=== PATIENT | male | born 1955 | race Hispanic/Latino ===

== ENCOUNTER 2016-11-27 13:50 | Outpatient (CLI) | payer MEDICARE | END 2016-11-27 13:51 | disposition home or self-care (01) | LOC: PET 13:50 | PROVIDERS: ATTEND Internal Medicine | DX: C43.9 Malignant melanoma of skin, unspecified (principal) | CPT/HCPCS: 78816; 82962; A9552 ==

== ENCOUNTER 2016-11-28 10:36 | Outpatient (CLI) | payer MEDICARE ==
[2016-11-28 11:27] LABS: Blood Urea Nitrogen 17 mg/dL (9-20)
== END 2016-11-28 10:37 | disposition home or self-care (01) ==
LOC: MRI 10:36
PROVIDERS: ATTEND Internal Medicine
DX: C43.59 Malignant melanoma of other part of trunk (principal)
CPT/HCPCS: 36415; 82565; 84520

== ENCOUNTER 2016-12-10 11:07 | Outpatient (CLI) | payer MEDICARE ==
[2016-12-10 13:14] LABS: Blood Urea Nitrogen 25 mg/dL (9-20)
--- NOTE | 2016-12-10 15:05 | Cat Scan Report ---
CT HEAD WITH AND WITHOUT CONTRAST: HISTORY: Melanoma. Serial contiguous axial images were obtained through the cranium, both before and after the administration of intravenous contrast material. The ventricles are normal in size and appearance. There is no mass effect or midline shift. No areas of abnormally increased or decreased attenuation are seen. No mass lesion is seen. A neurostimulator device terminates near the tentorium in the posterior fossa. This is unchanged since 09/25/16. The mastoid air cells and visualized portions of the sinuses are normal. IMPRESSION: Cranial CT scan within normal limits. No evidence for metastatic disease.
== END 2016-12-10 11:08 | disposition home or self-care (01) ==
LOC: CT 11:07
PROVIDERS: ATTEND Surgery Surgical Oncology
DX: C43.59 Malignant melanoma of other part of trunk (principal)
CPT/HCPCS: 36415; 70470; 82565; 84520; Q9967

== ENCOUNTER 2017-02-09 05:30 | Emergency (ER) | payer MEDICARE ==
--- NOTE | 2017-02-09 07:30 | Emergency Department Report ---
ED Fall HPI - General Chief Complaint: Fall Stated Complaint: HEAD LAC Time Seen by Provider: 02/09/17 07:15 Source: EMS Mode of arrival: Stretcher - History of Present Illness MD Complaint: fall -: Sudden Fall From: standing When Fall Occurred: 1 hour [employer] Fall Witnessed: yes, by living facility s Place Fall Occurred: detention/SNF Loss of Consciousness: none Prolonged Down Time?: no Symptoms Prior to Fall: none Location: head Severity: mild Severity scale (0 -10): 2 Quality: sharp Context: tripped/slipped Associated Symptoms: denies - Related Data Home Medications Medication Instructions Recorded Confirmed Last Taken Lacosamide [Vimpat] 100 mg PO Q12HR 09/01/15 11/29/15 09/26/15 08:00 Mirtazapine Solutab [Remeron] 15 mg PO QHS 09/01/15 11/29/15 09/25/15 Ziprasidone [Geodon] 20 mg PO BID 09/01/15 11/29/15 09/25/15 levETIRAcetam [Keppra TAB] 1,500 mg PO BID 09/01/15 11/29/15 09/26/15 08:00 Acetaminophen [Tylenol] 325 mg PO PRN PRN 09/13/15 11/29/15 09/20/15 Cholecalciferol (Vitamin D3) 50,000 unit PO QMONTH 09/13/15 11/29/15 09/20/15 [Vitamin D] Ferrous Sulfate [Feosol 325 MG tab] 325 mg PO DAILY 09/13/15 11/29/15 09/25/15 Ibuprofen [Motrin 600 MG tab] 600 mg PO PRN PRN 09/13/15 11/29/15 09/21/15 LORazepam [Ativan] 0.5 mg PO PRN PRN 09/13/15 11/29/15 09/20/15 Pedi Multivit #61/Vit D3/Vit K 1 tab PO DAILY 09/13/15 11/29/15 09/21/15 [Complete Formulation Multivit] oxyCODONE /ACETAMINOPHEN [Percocet 1 tab PO PRN PRN 09/13/15 11/29/15 09/23/15 5/325 mg] Previous Rx's Medication Instructions Recorded Last Taken Type Bacitracin [Bacitracin Ophth] 3.5 gm OP BID #1 oint...g. 09/15/16 Unknown Rx Mupirocin 1 gm TP ACHS #1 oin.pf.miryam 02/09/17 Unknown Rx Allergies Allergy/AdvReac Type Severity Reaction Status Date / Time No Known Allergies Allergy Verified 09/13/15 11:36 ED Review of Systems ROS: Stated complaint: HEAD LAC Other details as noted in HPI Comment: All other systems reviewed and negative Constitutional: no symptoms reported Skin: other (laceration) Neurological: headache ED Past Medical Hx - Past Medical History Previous Medical History?: Yes Hx Heart Attack/AMI: No Hx Congestive Heart Failure: No Hx Diabetes: No Hx Renal Disease: No Hx Seizures: Yes (seizure disorder since 13 yrs old, has deep brain stimulator, on Keppra) Hx Psychiatric Treatment: Yes (schizotypal d/o; major depression) Hx Asthma: No Hx COPD: No Hx Dementia: Yes Additional medical history: high chol, dementia. myopia - Surgical History Additional Surgical History: Stimulator to his brain to control seizures. - Social History Smoking Status: Never Smoker - Medications Home Medications: Home Medications Medication Instructions Recorded Confirmed Last Taken Type Lacosamide [Vimpat] 100 mg PO Q12HR 09/01/15 11/29/15 09/26/15 08:00 History Mirtazapine Solutab [Remeron] 15 mg PO QHS 09/01/15 11/29/15 09/25/15 History Ziprasidone [Geodon] 20 mg PO BID 09/01/15 11/29/15 09/25/15 History levETIRAcetam [Keppra TAB] 1,500 mg PO BID 09/01/15 11/29/15 09/26/15 08:00 History Acetaminophen [Tylenol] 325 mg PO PRN PRN 09/13/15 11/29/15 09/20/15 History Cholecalciferol (Vitamin D3) 50,000 unit PO QMONTH 09/13/15 11/29/15 09/20/15 History [Vitamin D] Ferrous Sulfate [Feosol 325 MG tab] 325 mg PO DAILY 09/13/15 11/29/15 09/25/15 History Ibuprofen [Motrin 600 MG tab] 600 mg PO PRN PRN 09/13/15 11/29/15 09/21/15 History LORazepam [Ativan] 0.5 mg PO PRN PRN 09/13/15 11/29/15 09/20/15 History Pedi Multivit #61/Vit D3/Vit K 1 tab PO DAILY 09/13/15 11/29/15 09/21/15 History [Complete Formulation Multivit] oxyCODONE /ACETAMINOPHEN [Percocet 1 tab PO PRN PRN 09/13/15 11/29/15 09/23/15 History 5/325 mg] Bacitracin [Bacitracin Ophth] 3.5 gm OP BID #1 oint...g. 09/15/16 Unknown Rx Mupirocin 1 gm TP ACHS #1 oin.pf.miryam 02/09/17 Unknown Rx ED Physical Exam - General Limitations: No Limitations General appearance: alert, in no apparent distress - Head Head exam: Present: other (right forehead laceration) - Eye Eye exam: Present: normal appearance, PERRL, EOMI - ENT ENT exam: Present: normal exam - Neck Neck exam: Present: normal inspection, tenderness - Respiratory Respiratory exam: Present: normal lung sounds bilaterally - Cardiovascular Cardiovascular Exam: Present: regular rate - GI/Abdominal GI/Abdominal exam: Present: soft - Neurological Exam Neurological exam: Present: alert, oriented X3 - Psychiatric Psychiatric exam: Present: normal affect - Skin Skin exam: Present: other (laceration right forehead) ED Course Vital Signs 02/09/17 05:44 Temperature 98.6 F Pulse Rate 76 Blood Pressure 139/81 - Laceration /Wound Repair Head Wound Location: head Wound's Depth, Shape: into muscle Wound Explored: clean Betadine Prep?: Yes Anesthesia: 1% Lidocaine Wound Debrided: moderate Wound Repaired With: sutures Suture Size/Type: 4:0 Layer Closure?: Yes (1) Number Deep Layer Sutures: 1 Critical care attestation.: If time is entered above; I have spent that time in minutes in the direct care of this critically ill patient, excluding procedure time. ED Disposition Clinical Impression: Laceration of head Disposition: DC-01 TO HOME OR SELFCARE Is pt being admited?: No Does the pt Need Aspirin: No Condition: Stable Instructions: Suture Care (ED) Prescriptions: Mupirocin 1 gm TP ACHS #1 oin.pf.miryam Referrals: PRIMARY CARE, [Primary Care Provider] - 3-5 Days
--- NOTE | 2017-02-09 08:05 | Cat Scan Report ---
CT HEAD WITHOUT CONTRAST INDICATION: Head injury. COMPARISON: 12/10/2016. FINDINGS: Noncontrast head CT again demonstrates normal ventricles and symmetric, age-appropriate sulci, prominent anteriorly and toward the vertex. Slight periventricular hypodensities. No acute infarct, hemorrhage, mass effect or midline shift. Normal posterior fossa with preserved basilar cisterns. Cerebellar neurostimulator electrodes bilaterally creating extensive streak artifact and limiting exam. Normal eye globes. Clear paranasal sinuses and mastoid air cells. Bilateral external auditory canal debris may be directly visualized. Extensive atherosclerotic ICA and vertebrobasilar calcifications. Intact calvarium except for midline occipital postsurgical changes. High parietal scalp swelling/hematoma posteriorly is new, axial image 50. Few radiopaque dental fillings and missing teeth. Cervical spondylosis. CONCLUSION: High parietal scalp swelling/hematoma posteriorly and various other incidental findings without acute intracranial CT abnormality, as described. Please correlate. Thank you for the opportunity to participate in this patient's care.
[2017-02-09] MEDS ORDERED: XYLOCAINE 1% 20 mL INFILTRATI ONE (08:09)
[2017-02-09 08:58] VITALS: BP 132/76
== END 2017-02-09 10:30 | disposition home or self-care (01) ==
LOC: ED 05:30
DX: S01.81XA Laceration without foreign body of other part of head, initial encounter (principal); G40.909 Epilepsy, unspecified, not intractable, without status epilepticus; E78.00 Pure hypercholesterolemia, unspecified; F03.90 Unspecified dementia, unspecified severity, without behavioral disturbance, psychotic disturbance, mood disturbance, and anxiety
CPT/HCPCS: 70450

== ENCOUNTER 2017-02-20 02:04 | Emergency (ER) | payer MEDICARE ==
[2017-02-20] MEDS ORDERED: NACL 0.9% IR ONE (02:30)
[2017-02-20] MEDS ORDERED: MARCAINE 0.5% INFILTRATI ONE (02:30)
--- NOTE | 2017-02-20 02:32 | Emergency Department Report ---
<ARIELA PLUNKETT A - Last Filed: 02/20/17 19:08> ED Fall HPI - General Chief Complaint: Fall Stated Complaint: FALL - HEAD LAC Time Seen by Provider: 02/20/17 02:28 Source: patient, EMS Mode of arrival: Ambulatory - History of Present Illness Initial Comments: Patient brought to emergency room from personal alf. Patient has extensive history of schizophrenic disorder, major depression, dementia, seizure disorder. It was reported that baseline he is mentally slow. It was reported that patient was found on the floor and EMS report that staff told them that patient slipped and fell. Patient is at [facility]. Patient with multiple laceration to face and missing tooth with lip laceration. He denies any headache or neck pain. Patient said he does not have any pain. He said he slipped and fell. Denies that he lost consciousness. Patient does answer questions appropriately. EMS did not give patient any medication. MD Complaint: fall -: During the night Fall From: standing (reported by fdc) When Fall Occurred: just prior to arrival Fall Witnessed: yes, by bystander, yes, by living facility s Place Fall Occurred: other (assisted-living facility) Loss of Consciousness: none Prolonged Down Time?: no Symptoms Prior to Fall: none Location: head, face, mouth Severity scale (0 -10): 0 Context: tripped/slipped Associated Symptoms: denies: headache, neck pain, numbness, weakness, chest paint, shortness of breath, abdominal pain, hematuria, lightheaded, vertigo, confusion - Related Data Home Medications Medication Instructions Recorded Confirmed Last Taken Lacosamide [Vimpat] 100 mg PO Q12HR 09/01/15 11/29/15 09/26/15 08:00 Mirtazapine Solutab [Remeron] 15 mg PO QHS 09/01/15 11/29/15 09/25/15 Ziprasidone [Geodon] 20 mg PO BID 09/01/15 11/29/15 09/25/15 levETIRAcetam [Keppra TAB] 1,500 mg PO BID 09/01/15 11/29/15 09/26/15 08:00 Acetaminophen [Tylenol] 325 mg PO PRN PRN 09/13/15 11/29/15 09/20/15 Cholecalciferol (Vitamin D3) 50,000 unit PO QMONTH 09/13/15 11/29/15 09/20/15 [Vitamin D] Ferrous Sulfate [Feosol 325 MG tab] 325 mg PO DAILY 09/13/15 11/29/15 09/25/15 Ibuprofen [Motrin 600 MG tab] 600 mg PO PRN PRN 09/13/15 11/29/15 09/21/15 LORazepam [Ativan] 0.5 mg PO PRN PRN 09/13/15 11/29/15 09/20/15 Pedi Multivit #61/Vit D3/Vit K 1 tab PO DAILY 09/13/15 11/29/15 09/21/15 [Complete Formulation Multivit] oxyCODONE /ACETAMINOPHEN [Percocet 1 tab PO PRN PRN 09/13/15 11/29/15 09/23/15 5/325 mg] Previous Rx's Medication Instructions Recorded Last Taken Type Bacitracin [Bacitracin Ophth] 3.5 gm OP BID #1 oint...g. 09/15/16 Unknown Rx Mupirocin 1 gm TP ACHS #1 oin.pf.miryam 02/09/17 Unknown Rx Acetaminophen [Non-Aspirin Pain 500 mg PO Q8H PRN #12 tablet 02/20/17 Unknown Rx Relief] Cephalexin [Keflex] 500 mg PO Q8HR #21 cap 02/20/17 Unknown Rx Allergies Allergy/AdvReac Type Severity Reaction Status Date / Time No Known Allergies Allergy Verified 09/13/15 11:36 ED Review of Systems ROS: Stated complaint: FALL - HEAD LAC Other details as noted in HPI Comment: All other systems reviewed and negative Constitutional: denies: chills, fever Eyes: denies: vision change ENT: denies: epistaxis Respiratory: no symptoms reported Cardiovascular: denies: chest pain, palpitations, edema, syncope Gastrointestinal: denies: abdominal pain, nausea, vomiting, diarrhea Musculoskeletal: denies: back pain, joint swelling, arthralgia, myalgia Skin: other (lacerations s/p fall). denies: rash Neurological: denies: headache, weakness, numbness, paresthesias, confusion, vertigo Psychiatric: denies: anxiety, depression, auditory hallucinations, visual hallucinations, homicidal thoughts, suicidal thoughts Hematological/Lymphatic: denies: easy bleeding, easy bruising, swollen glands ED Past Medical Hx - Past Medical History Previous Medical History?: Yes Hx Heart Attack/AMI: No Hx Congestive Heart Failure: No Hx Diabetes: No Hx Renal Disease: No Hx Seizures: Yes (seizure disorder since 13 yrs old, has deep brain stimulator, on Keppra) Hx Psychiatric Treatment: Yes (schizotypal d/o; major depression) Hx Asthma: No Hx COPD: No Hx Dementia: Yes Additional medical history: high chol, dementia. myopia - Surgical History Past Surgical History?: No Additional Surgical History: Stimulator to his brain to control seizures. - Family History Family history: no significant - Social History Smoking Status: Never Smoker Substance Use Type: None Other Social History: Lives in assisted living facility - Medications Home Medications: Home Medications Medication Instructions Recorded Confirmed Last Taken Type Lacosamide [Vimpat] 100 mg PO Q12HR 09/01/15 11/29/15 09/26/15 08:00 History Mirtazapine Solutab [Remeron] 15 mg PO QHS 09/01/15 11/29/15 09/25/15 History Ziprasidone [Geodon] 20 mg PO BID 09/01/15 11/29/15 09/25/15 History levETIRAcetam [Keppra TAB] 1,500 mg PO BID 09/01/15 11/29/15 09/26/15 08:00 History Acetaminophen [Tylenol] 325 mg PO PRN PRN 09/13/15 11/29/15 09/20/15 History Cholecalciferol (Vitamin D3) 50,000 unit PO QMONTH 09/13/15 11/29/15 09/20/15 History [Vitamin D] Ferrous Sulfate [Feosol 325 MG tab] 325 mg PO DAILY 09/13/15 11/29/15 09/25/15 History Ibuprofen [Motrin 600 MG tab] 600 mg PO PRN PRN 09/13/15 11/29/15 09/21/15 History LORazepam [Ativan] 0.5 mg PO PRN PRN 09/13/15 11/29/15 09/20/15 History Pedi Multivit #61/Vit D3/Vit K 1 tab PO DAILY 09/13/15 11/29/15 09/21/15 History [Complete Formulation Multivit] oxyCODONE /ACETAMINOPHEN [Percocet 1 tab PO PRN PRN 09/13/15 11/29/15 09/23/15 History 5/325 mg] Bacitracin [Bacitracin Ophth] 3.5 gm OP BID #1 oint...g. 09/15/16 Unknown Rx Mupirocin 1 gm TP ACHS #1 oin.pf.miryam 02/09/17 Unknown Rx Acetaminophen [Non-Aspirin Pain 500 mg PO Q8H PRN #12 tablet 02/20/17 Unknown Rx Relief] Cephalexin [Keflex] 500 mg PO Q8HR #21 cap 02/20/17 Unknown Rx ED Physical Exam - General Limitations: No Limitations, Physical Limitation General appearance: alert, in no apparent distress - Head Head exam: Present: atraumatic, normocephalic, normal inspection - Eye Eye exam: Present: normal appearance, PERRL, EOMI. Absent: nystagmus, periorbital swelling, periorbital tenderness Pupils: Present: normal accommodation - ENT ENT exam: Present: normal orophraynx, mucous membranes moist, TM's normal bilaterally, normal external ear exam. Absent: normal exam - Expanded ENT Exam Expanded Ear exam: Present: normal external inspection Mouth exam: Present: tongue normal, laceration (upper rt lip). Absent: drooling , trismus, muffled voice, tongue elevation Teeth exam: Present: dental caries, fractured tooth # (missing tooth #7 and 8), dental tenderness # (#7, 8 and 9). Absent: gingival enlargement Throat exam: Positive: normal inspection - Neck Neck exam: Present: normal inspection, full ROM. Absent: tenderness, meningismus, lymphadenopathy - Expanded Neck Exam Expanded Neck exam: Absent: tenderness, midline deformity, anterior neck swelling, tracheal deviation - Respiratory Respiratory exam: Present: normal lung sounds bilaterally. Absent: respiratory distress, chest wall tenderness, accessory muscle use, decreased breath sounds - Cardiovascular Cardiovascular Exam: Present: regular rate, normal rhythm, normal heart sounds - GI/Abdominal GI/Abdominal exam: Present: soft, normal bowel sounds. Absent: distended, tenderness, guarding, rebound, rigid - Extremities Exam Extremities exam: Present: normal inspection, full ROM, normal capillary refill , other (no clubbing cyanosis or edema to extremities. +2 pulses to extremities. no neurovascular compromise.). Absent: tenderness, pedal edema, joint swelling, calf tenderness - Back Exam Back exam: Present: normal inspection, full ROM. Absent: tenderness, CVA tenderness (R), CVA tenderness (L), muscle spasm, paraspinal tenderness, vertebral tenderness, rash noted - Neurological Exam Neurological exam: Present: alert, oriented X3, abnormal gait (patient able to ambulate but his gait is unsteady which is chronic for him), reflexes normal, other (patient is alert and oriented 3, normal speech and no facial drooping. GCS of 15. Decrease strength to lower extremities which is chronic.. Bilateral hand tool builder strong and equal.). Absent: motor sensory deficit - Expanded Neurological Exam Expanded Neurological exam: Absent: innattentive, memory loss-remote event, memory loss- recent event, ataxia, receptive aphasia, expressive aphasia, total aphasia, tremor, protecting the airway Patient oriented to: Present: person, place, time Speech: Present: fluid speech Cranial nerves: EOM's Intact: Normal, Gag Reflex: Normal, Tongue Deviation: Normal, Nystagmus: Normal, Facial Sensation: Normal Cerebellar function: Finger to Nose: Normal, Romberg: Abnormal Right, Abnormal Left (patient would unsteady gait which is chronic) Upper motor neuron: Pronator Drift: Normal, Sensory Extinction: Normal Sensory exam: Upper Extremity Light Touch: Normal, Upper Extremity Temperature: Normal, UE 2 Point Discrimination: Normal, Lower Extremity Light Touch: Normal, Lower Extremity Temperature: Normal, LE 2 Point Discrimination: Normal Motor strength exam: RUE: 5, LUE: 5, RLE: 4, LLE: 4 DTR: bicep (R): 2+, bicep (L): 2+, tricep (R): 2+, tricep (L): 2+, knee (R): 2+ , knee (L): 2+, ankle (R): 2+, ankle (L): 2+ Best Eye Response ([place]): (4) open spontaneously Best Motor Response (Gustavo): (6) obeys commands Best Verbal Response (Gustavo): (5) oriented Gustavo Total: 15 - Psychiatric Psychiatric exam: Present: normal affect, normal mood - Skin Skin exam: Present: warm, dry, other (multiple laceration to face) - Expanded Skin Exam Expanded Type of lesion: Present: laceration Distribution of rash: head (laceration to forehead with scant bleed and), face ( laceration to the nasal bone area and inner upper lip) Description of rash: Present: tenderness, swelling. Absent: erythematous, discharge, fluctuant, indurated ED Course Vital Signs 02/20/17 02/20/17 02/20/17 02:33 02:34 03:40 Temperature 99 F 98 F Pulse Rate 88 77 Respiratory 18 18 18 Rate Blood Pressure 119/58 113/62 [Left] O2 Sat by Pulse 100 94 Oximetry 02/20/17 02/20/17 03:42 05:15 Temperature Pulse Rate 86 Respiratory 18 18 Rate Blood Pressure 134/84 [Left] O2 Sat by Pulse 98 Oximetry - Reevaluation(s) Reevaluation #1: 02/20/17 04:09 Patient tetanus shot is up-to-date he received in 2016 Reevaluation #2: 02/20/17 05:08 Patient's stable, he was given Ancef 1 g in emergency room empirically due to multiple laceration. See procedure note for laceration repair. Patient able to stand up and ambulate. His gait is unsteady - Laceration /Wound Repair Right Frontal Wound Location: head (right forehead) Wound Length (cm): 2 Wound's Depth, Shape: into muscle, irregular Wound Explored: clean Irrigated w/ Saline (ccs): 300 Betadine Prep?: Yes Anesthesia: 0.5% Sensorcaine (0.5% Marcaine) Volume Anesthetic (ccs): 1 Wound Debrided: extensive Wound Repaired With: sutures Suture Size/Type: 4:0 (Vicryl) Number of Sutures: 12 Layer Closure?: Yes Deep Layer Suture Size/Type: 6:0 (Vicryl) Number Deep Layer Sutures: 3 Sterile Dressing Applied?: Yes Progress: Patient laceration repaired under sterile procedure. Tolerated procedure well. Wound edges well approximated. Absorbable sutures used Medial Nose Wound Location: face (medial nose) Wound Length (cm): 0 (0.25 cm) Wound's Depth, Shape: superficial Wound Explored: no foreign body removed Irrigated w/ Saline (ccs): 100 Betadine Prep?: Yes Anesthesia: 0.5% Sensorcaine (0.5% Marcaine) Volume Anesthetic (ccs): 0 (0.25 mL) Wound Debrided: moderate Wound Repaired With: sutures Suture Size/Type: 6:0 (Vicryl) Number of Sutures: 2 Layer Closure?: Yes Sterile Dressing Applied?: No Progress: Wound repaired under sterile procedure. Wound edges well approximated and patient tolerated procedure well Right Upper Face Wound Location: mouth (right upper inner lip) Wound Length (cm): 1 Wound's Depth, Shape: superficial, irregular, stellate Wound Explored: no foreign body removed Irrigated w/ Saline (ccs): 200 Betadine Prep?: Yes Anesthesia: 0.5% Sensorcaine (0.5% marcaine) Wound Debrided: moderate Wound Repaired With: sutures Suture Size/Type: 6:0 (vicryl) Number of Sutures: 6 Layer Closure?: No Sterile Dressing Applied?: Yes Medial Frontal Wound Location: head (mid forehead) Wound Length (cm): 0 (0.25 cm) Wound's Depth, Shape: superficial, linear Wound Explored: clean Irrigated w/ Saline (ccs): 100 Betadine Prep?: Yes Volume Anesthetic (ccs): 0 Wound Debrided: moderate Wound Repaired With: Steri-strips Number of Sutures: 2 Layer Closure?: No Sterile Dressing Applied?: No ED Medical Decision Making - Lab Data Result diagrams: 02/20/17 03:10 02/20/17 03:10 Lab Results 02/20/17 02/20/17 Range/Units 03:10 03:10 WBC 14.6 H (4.5-11.0) K/mm3 RBC 3.76 (3.65-5.03) M/mm3 Hgb 12.9 (11.8-15.2) gm/dl Hct 36.5 (35.5-45.6) % MCV 97 H (84-94) fl MCH 34 H (28-32) pg MCHC 35 H (32-34) % RDW 18.0 H (13.2-15.2) % Plt Count 186 (140-440) K/mm3 Lymph % (Auto) 6.4 L (13.4-35.0) % [place] % (Auto) 7.5 H (0.0-7.3) % Eos % (Auto) 0.7 (0.0-4.3) % Baso % (Auto) 0.2 (0.0-1.8) % Lymph # 0.9 L (1.2-5.4) K/mm3 [place] # 1.1 H (0.0-0.8) K/mm3 Eos # 0.1 (0.0-0.4) K/mm3 Baso # 0.0 (0.0-0.1) K/mm3 Seg Neutrophils % 85.2 H (40.0-70.0) % Seg Neutrophils # 12.4 H (1.8-7.7) K/mm3 Sodium 143 (137-145) mmol/L Potassium 3.9 (3.6-5.0) mmol/L Chloride 104.0 (98-107) mmol/L Carbon Dioxide 24 (22-30) mmol/L Anion Gap 19 mmol/L BUN 26 H (9-20) mg/dL Creatinine 0.9 (0.8-1.5) mg/dL Estimated GFR > 60 ml/min BUN/Creatinine Ratio 28.88 % Glucose 107 H (75-100) mg/dL Calcium 9.4 (8.4-10.2) mg/dL - Radiology Data Radiology results: report reviewed CT scan of the facial bones revealed acute avulsion of the right central maxillary incisor partial avulsion of the left central maxillary incisor. Depressed bilateral nasal bone fractures, comminuted no intraocular or retro- bulbar hematoma CT scan of the head reveals no acute intracranial abnormality. Mild age- related volume loss and chronic small vessel ischemic disease. Bilateral cerebral neuro stimulator remained in place. Persistent soft tissue swelling over high parietal Calvarium. CT scan of C-spine revealed no acute fracture or subluxation of the cervical spine. Mild to moderate degenerative changes of the cervical spine - Medical Decision Making ED course: 62-year-old male Patient came from assisted living facility after falling and with multiple laceration to the facial area. Patient is neurologically intact with no C-spine pain or headache and denies loss of consciousness. Multiple laceration repair see procedure note for details. Patient had multiple CT scan which did not show any acute findings except for multiple missing tooth and nasal bone fracture. CBC and BMP done see results below. Patient did not require any pain medication in the emergency room. Diagnosis and treatment plan discussed with patient. Patient able to get out of bed and ambulate and he is at his baseline which she is unsteady on his feet. Ambulance called to transport patient back to assisted living facility. He remained stable throughout ED course. Diagnostic/laboratory results:CT scan of the facial bones revealed acute avulsion of the right central maxillary incisor partial avulsion of the left central maxillary incisor. Depressed bilateral nasal bone fractures, comminuted no intraocular or retro-bulbar hematoma CT scan of the head reveals no acute intracranial abnormality. Mild age- related volume loss and chronic small vessel ischemic disease. Bilateral cerebral neuro stimulator remained in place. Persistent soft tissue swelling over high parietal Calvarium. CT scan of C-spine revealed no acute fracture or subluxation of the cervical spine. Mild to moderate degenerative changes of the cervical spine CBC white count of 14.6 otherwise stable, BMP with BUN at 26 which is mildly elevated and blood glucose at 107. Otherwise stable Assessment/plan 1. Accidental ground-level fall 2.Laceration multiple sites to include nose, inner upper lip and right forehead 3. Closed head injury 4. Avulsion Tooth, Multiple 5: Bilateral nasal bone fracture Patient is stable and able to ambulate in room but is gait is unsteady which is baseline for him. Patient discharged from emergency room awaiting EMS transport back to assisted living facility. Discharge home with prescription for Keflex and Tylenol plain and to follow up with his primary care physician later this morning. Patient also given referral to ENT regarding nasal bone fracture, and dentists. Patient with laceration repair with absorbable suture so there is no need to return for suture removal. Patient is able to communicate and voiced understanding of diagnosis. RN to call report to assisted living facility. Patient away then EMS transport. Critical care attestation.: If time is entered above; I have spent that time in minutes in the direct care of this critically ill patient, excluding procedure time. ED Disposition Disposition: DC-01 TO HOME OR SELFCARE Is pt being admited?: No Does the pt Need Aspirin: No Condition: Stable Instructions: Nasal Fracture (ED), Laceration (ED), Fall Prevention for Older Adults (ED), Minor Head Injury (ED), Acute dental trauma (ED), Skin Adhesive Care (ED), Absorbable Suture Care (ED) Additional Instructions: Please take antibiotic as prescribed You can take plain Tylenol for pain See discharge instruction on suture care and laceration Follow-up with primary care physician later this morning and Prescriptions: Acetaminophen [Non-Aspirin Pain Relief] 500 mg PO Q8H PRN #12 tablet PRN Reason: Pain Cephalexin [Keflex] 500 mg PO Q8HR #21 cap Referrals: MURPHY CHUNG MD [Primary Care Provider] - 02/20/17 [facility] [Outside] - 02/20/17 BARBARA WANG MD [Staff Physician] - 02/20/17 <ROBIN LANGE - Last Filed: 02/21/17 11:11> ED Medical Decision Making - Lab Data Result diagrams: 02/20/17 03:10 02/20/17 03:10 - Medical Decision Making I have seen and examined this patient myself. I agree with the PA or COMMISSARY WORKER plan as discussed. Sridhar Lange
--- NOTE | 2017-02-20 03:07 | Cat Scan Report ---
FINAL REPORT EXAM: CT HEAD/BRAIN WO CON HISTORY: fall COMPARISON: CT of the head from February 09, 2017. TECHNIQUE: Axial images obtained skull base through vertex. FINDINGS: No acute intracranial hemorrhage, midline shift or pathologic extra axial fluid collection. Age related volume loss with compensatory dilatation of the ventricular system and chronic small vessel ischemic disease. Otherwise, mckinley-white differentiation preserved. Prominent calcification of the vertebral basilar system and carotid siphons. Mild lateral stimulator leads are present along the superior margin the bilateral cerebellar hemispheres. Visualized orbits are grossly unremarkable. Visualized para-nasal sinuses and mastoid air cells are clear. Persistent soft tissue swelling over the high parietal calvarium. Mild soft tissue swelling along the right frontal calvarium. No acute calvarial fracture. IMPRESSION: No grossly acute intracranial abnormality. Mild age related volume loss and chronic small vessel ischemic disease. Bilateral cerebellar neuro stimulators remain in place. Persistent soft tissue swelling over high parietal calvarium.
--- NOTE | 2017-02-20 03:14 | Cat Scan Report ---
FINAL REPORT EXAM: CT FACIAL BONES WO CON HISTORY: fall with facial injuries COMPARISON: CT of the head from the same date. TECHNIQUE:: Axial images obtained through the facial bones. Additional sagittal and coronal reformatted images were obtained. FINDINGS:: Oribtal rims, zygomatic arches, ptyergoid plates, and mandible are intact. Comminuted depressed bilateral nasal bone fractures. Cture. No intraocular or retrobulbar hematoma. Optic nerves and extraocular musculature are symmetric in morphology. No hemorrhagic air fluid levels in the paranasal sinuses. Avulsive injury involving the right maxillary central incisor. There is adjacent soft tissue swelling. This is compatible with acute injury. There is absence of the right lateral central incisor which appears chronic. There is partial avulsion of the root of the left central maxillary incisor. Mild mucosal thickening of the paranasal sinuses. [id number] degenerative changes of the left TMJ. IMPRESSION:: Acute avulsion of the right central maxillary incisor partial avulsion of the left central maxillary incisor. Depressed bilateral nasal bone fractures.
--- NOTE | 2017-02-20 03:22 | Cat Scan Report ---
FINAL REPORT EXAM: CT CERVICAL SPINE WO CON HISTORY: fall COMPARISON: None available. TECHNIQUE: Axial images obtained through the cervical spine. Additional sagittal and coronal reformatted images were obtained. FINDINGS: Normal lordotic curvature of the cervical spine. Cervical vertebral body heights are preserved. No acute fracture or traumatic subluxation. Odontoid process, articular pillars and occipital condyles are intact. Mild to moderate degenerative changes of the cervical spine. Focal endplate osteophyte along the left paracentral margin the disc at the C5-C6 level causes mild to moderate focal canal stenosis. Mild foraminal narrowing on the right at several levels due to uncovertebral hypertrophy and facet changes. IMPRESSION: No acute fracture or subluxation of the cervical spine. Mild to moderate degenerative changes of the cervical spine.
[2017-02-20 03:31] LABS: Basophils % (Auto) 0.2 % (0.0-1.8); Eosinophils % (Auto) 0.7 % (0.0-4.3); Hematocrit 36.5 % (35.5-45.6); Hemoglobin 12.9 gm/dl (11.8-15.2); Mean Corpuscular HGB Conc 35 % (32-34); Mean Corpuscular Hemoglobin 34 pg (28-32); Mean Corpuscular Volume 97 fl (84-94); Platelet Count 186 K/mm3 (140-440); Red Blood Count 3.76 M/mm3 (3.65-5.03); White Blood Count 14.6 K/mm3 (4.5-11.0)
[2017-02-20 03:41] LABS: Anion Gap 19 mmol/L; BUN/Creatinine Ratio 28.88; Blood Urea Nitrogen 26 mg/dL (9-20); Calcium 9.4 mg/dL (8.4-10.2); Carbon Dioxide 24 mmol/L (22-30); Glucose 107 mg/dL (75-100); Potassium 3.9 mmol/L (3.6-5.0); Sodium 143 mmol/L (137-145)
[2017-02-20] MEDS ORDERED: HYDROGEN PEROXIDE ONE (04:20)
[2017-02-20] MEDS ORDERED: HYDROGEN PEROXIDE TP ONE (04:25)
[2017-02-20] MEDS ORDERED: ANCEF IM ONE (04:35)
[2017-02-20 05:16] VITALS: BP 134/84
== END 2017-02-20 06:46 | disposition home or self-care (01) ==
LOC: ED 02:04
DX: S01.81XA Laceration without foreign body of other part of head, initial encounter (principal); S01.511A Laceration without foreign body of lip, initial encounter; S01.21XA Laceration without foreign body of nose, initial encounter; W18.30XA Fall on same level, unspecified, initial encounter; Y93.9 Activity, unspecified; Y92.9 Unspecified place or not applicable; Y99.9 Unspecified external cause status
CPT/HCPCS: 12011; 12051; 36415; 70450; 70486; 72125; 80048; 85025; 96372; 99284; J0690

== ENCOUNTER 2017-08-10 12:12 | Emergency (ER) | payer MEDICARE ==
[2017-08-10] MEDS ORDERED: ASPIRIN PO ONE (13:17)
[2017-08-10] MEDS ORDERED: TRIPLE ANTIBIOTIC TP ONE ×2 (14:35→16:48)
[2017-08-10] MEDS ORDERED: NACL 0.9% IR ONE (14:35)
[2017-08-10] MEDS ORDERED: XYLOCAINE 1% 20 mL INFILTRATI ONE (14:35)
[2017-08-10 15:23] LABS: Hematocrit 39.5 % (35.5-45.6); Hemoglobin 13.3 gm/dl (11.8-15.2); Mean Corpuscular HGB Conc 34 % (32-34); Mean Corpuscular Hemoglobin 34 pg (28-32); Mean Corpuscular Volume 102 fl (84-94); Platelet Count 241 K/mm3 (140-440); Red Blood Count 3.88 M/mm3 (3.65-5.03)
[2017-08-10] MEDS ORDERED: TENIVAC IM ONE (15:35)
[2017-08-10 15:39] LABS: BUN/Creatinine Ratio 48; Blood Urea Nitrogen 38 mg/dL (9-20); Calcium 8.5 mg/dL (8.4-10.2); Hemolysis Index 18
[2017-08-10] MEDS ORDERED: NACL 0.9% 1000 ML 1,000 ML IV ONE (16:03)
--- NOTE | 2017-08-10 16:32 | Cat Scan Report ---
FINAL REPORT PROCEDURE: CT HEAD/BRAIN WO CON TECHNIQUE: Computerized tomography of the head was performed without contrast material. HISTORY: fall, injury COMPARISON: 02/20/2017 FINDINGS: High attenuated ovoid egg shaped mass in the left frontal lobe measures 2.5 x 2.2 centimeters with surrounding edema consistent with or suggestive of metastatic focus. Followup CT scan with IV contrast or MRI is advised. Persistent artifacts related to wire catheter leads posterior fossa region.. Posterior craniectomy defect. Otherwise stable. Ventricles normal size IMPRESSION: High attenuated mass in the left frontal lobe suggesting metastatic disease. Recommend CT scan with IV contrast or MRI. No posttraumatic intracranial bleed or fracture suspected
--- NOTE | 2017-08-10 16:48 | Cat Scan Report ---
FINAL REPORT PROCEDURE: CT CERVICAL SPINE WO CON TECHNIQUE: Computerized tomography of the cervical spine was performed from the skull base to T1 without contrast material. HISTORY: fall, injury COMPARISON: 02/20/2017 FINDINGS: Scoliosis. Diffuse moderate to severe degenerative changes with anterior osteophytes at the mid to lower cervical spine levels. Skull base appears without fracture. Posterior craniectomy defect. Multilevel facet arthropathy neuroforaminal narrowing. No definite evidence of acute fracture seen at this time. Patient appears oblique and rotated in the scanner, limiting the study accuracy. Motion and streak artifact also limits the study. IMPRESSION: No definite evidence acute cervical spine fracture on limited study. Examination limited by motion and oblique rotated position CT gantry particularly on sagittal reconstructions.
[2017-08-10] MEDS ORDERED: NACL 0.9% 500 ML IR ONE (16:51)
[2017-08-10] MEDS ORDERED: XYLOCAINE 1% MPF 5 mL ONE (16:53)
[2017-08-10 17:09] LABS: Band Neutrophils # (Manual) 1.1 K/mm3; Basophils % (Manual) 0 % (0.0-1.8); Eosinophils % (Manual) 0 % (0.0-4.3); Total Cells Counted 100
[2017-08-10 17:10] LABS: Large Platelets 1+; Macrocytosis 1+; Platelet Estimate Consistent w Auto; Poikilocytosis 1+
[2017-08-10] MEDS ORDERED: XYLOCAINE TOPICAL 4% TP ONE (18:05)
[2017-08-10] MEDS ORDERED: BOOSTRIX IM ONE (18:10)
--- NOTE | 2017-08-10 19:48 | Emergency Department Report ---
ED Head Trauma HPI - General Chief complaint: Altered Mental Status Stated complaint: AMS Time Seen by Provider: 08/10/17 14:07 Source: EMS Mode of arrival: Stretcher Limitations: No Limitations - History of Present Illness Initial comments: Patient is a 62-year-old male with a past medical history of seizures dementia and frequent falls who is presenting here today after a fall at his halfway. Patient walking to the bathroom and fell and suffered a laceration to the left forehead. Patient is at his baseline as far as his mental status according to his halfway he is mumbling and sometimes repetitive but will respond purposeful when addressed directly patient states he has no other pains patient states he did not lose consciousness was not dizzy and had no chest pain. - Related Data Home Medications Medication Instructions Recorded Confirmed Last Taken Lacosamide [Vimpat] 100 mg PO Q12HR 09/01/15 11/29/15 09/26/15 08:00 Mirtazapine Solutab [Remeron] 15 mg PO QHS 09/01/15 11/29/15 09/25/15 Ziprasidone [Geodon] 20 mg PO BID 09/01/15 11/29/15 09/25/15 levETIRAcetam [Keppra TAB] 1,500 mg PO BID 09/01/15 11/29/15 09/26/15 08:00 Acetaminophen [Tylenol] 325 mg PO PRN PRN 09/13/15 11/29/15 09/20/15 Cholecalciferol (Vitamin D3) 50,000 unit PO QMONTH 09/13/15 11/29/15 09/20/15 [Vitamin D] Ferrous Sulfate [Feosol 325 MG tab] 325 mg PO DAILY 09/13/15 11/29/15 09/25/15 Ibuprofen [Motrin 600 MG tab] 600 mg PO PRN PRN 09/13/15 11/29/15 09/21/15 LORazepam [Ativan] 0.5 mg PO PRN PRN 09/13/15 11/29/15 09/20/15 Pediatric Multivit 61/D3/Vit K 1 tab PO DAILY 09/13/15 11/29/15 09/21/15 [Complete Formulation Multivit] oxyCODONE /ACETAMINOPHEN [Percocet 1 tab PO PRN PRN 0311/29/15 09/23/15 5/325 mg] Previous Rx's Medication Instructions Recorded Last Taken Type Bacitracin [Bacitracin Ophth] 3.5 gm OP BID #1 oint...g. 09/15/16 Unknown Rx Mupirocin 1 gm TP ACHS #1 oin.pf.miryam 02/09/17 Unknown Rx Acetaminophen [Non-Aspirin Pain 500 mg PO Q8H PRN #12 tablet 02/20/17 Unknown Rx Relief] Cephalexin [Keflex] 500 mg PO Q8HR #21 cap 02/20/17 Unknown Rx Allergies/Adverse reactions: Allergies Allergy/AdvReac Type Severity Reaction Status Date / Time No Known Allergies Allergy Verified 09/13/15 11:36 ED Review of Systems ROS: Stated complaint: AMS Other details as noted in HPI Comment: Unobtainable due to pts medical conditions ED Past Medical Hx - Past Medical History Hx Heart Attack/AMI: No Hx Congestive Heart Failure: No Hx Diabetes: No Hx Renal Disease: No Hx Seizures: Yes (seizure disorder since 13 yrs old, has deep brain stimulator, on Keppra) Hx Psychiatric Treatment: Yes (schizotypal d/o; major depression) Hx Asthma: No Hx COPD: No Hx Dementia: Yes Additional medical history: high chol, dementia. myopia - Surgical History Additional Surgical History: Stimulator to his brain to control seizures. - Social History Smoking Status: Never Smoker Substance Use Type: None - Medications Home Medications: Home Medications Medication Instructions Recorded Confirmed Last Taken Type Lacosamide [Vimpat] 100 mg PO Q12HR 09/01/15 11/29/15 09/26/15 08:00 History Mirtazapine Solutab [Remeron] 15 mg PO QHS 09/01/15 11/29/15 09/25/15 History Ziprasidone [Geodon] 20 mg PO BID 09/01/15 11/29/15 09/25/15 History levETIRAcetam [Keppra TAB] 1,500 mg PO BID 09/01/15 11/29/15 09/26/15 08:00 History Acetaminophen [Tylenol] 325 mg PO PRN PRN 09/13/15 11/29/15 09/20/15 History Cholecalciferol (Vitamin D3) 50,000 unit PO QMONTH 03/09/2511/29/15 09/20/15 History [Vitamin D] Ferrous Sulfate [Feosol 325 MG tab] 325 mg PO DAILY 09/13/15 11/29/15 09/25/15 History Ibuprofen [Motrin 600 MG tab] 600 mg PO PRN PRN 09/13/15 11/29/15 09/21/15 History LORazepam [Ativan] 0.5 mg PO PRN PRN 09/13/15 11/29/15 09/20/15 History Pediatric Multivit 61/D3/Vit K 1 tab PO DAILY 09/13/15 11/29/15 09/21/15 History [Complete Formulation Multivit] oxyCODONE /ACETAMINOPHEN [Percocet 1 tab PO PRN PRN 09/13/15 11/29/15 09/23/15 History 5/325 mg] Bacitracin [Bacitracin Ophth] 3.5 gm OP BID #1 oint...g. 09/15/16 Unknown Rx Mupirocin 1 gm TP ACHS #1 oin.pf.miryam 02/09/17 Unknown Rx Acetaminophen [Non-Aspirin Pain 500 mg PO Q8H PRN #12 tablet 02/20/17 Unknown Rx Relief] Cephalexin [Keflex] 500 mg PO Q8HR #21 cap 02/20/17 Unknown Rx ED Physical Exam - General Limitations: Altered Mental Status, Physical Limitation General appearance: alert, in no apparent distress - Head Head exam: Present: normocephalic, other (patient has a Y shaped 4 cm laceration on the left forehead) - Eye Eye exam: Present: normal appearance - ENT ENT exam: Present: mucous membranes moist - Neck Neck exam: Present: normal inspection - Respiratory Respiratory exam: Present: normal lung sounds bilaterally. Absent: respiratory distress, wheezes, rales, rhonchi - Cardiovascular Cardiovascular Exam: Present: regular rate, normal rhythm. Absent: systolic murmur, diastolic murmur, rubs, gallop - GI/Abdominal GI/Abdominal exam: Present: soft, normal bowel sounds. Absent: distended, tenderness, guarding - Rectal Rectal exam: Present: deferred - Extremities Exam Extremities exam: Present: pedal edema - Back Exam Back exam: Present: normal inspection - Neurological Exam Neurological exam: Present: alert, oriented X3 - Psychiatric Psychiatric exam: Present: normal affect, normal mood - Skin Skin exam: Present: warm, dry, intact, normal color. Absent: rash ED Course Vital Signs 08/10/17 08/10/17 13:45 14:01 Temperature 98.4 F Pulse Rate 99 H 78 Respiratory 16 18 Rate Blood Pressure 120/67 134/78 [Right] O2 Sat by Pulse 100 97 Oximetry - Laceration /Wound Repair Left Head Wound Length (cm): 4 Wound's Depth, Shape: linear Wound Explored: clean (Y shaped) Irrigated w/ Saline (ccs): 300 Betadine Prep?: Yes Anesthesia: 1% Lidocaine Wound Repaired With: sutures Suture Size/Type: 5:0, nylon Number of Sutures: 7 Layer Closure?: No Sterile Dressing Applied?: Yes - Lab Data Result diagrams: 08/10/17 14:44 08/10/17 14:44 Lab Results 08/10/17 08/10/17 Range/Units 14:44 14:44 WBC 19.1 H (4.5-11.0) K/mm3 RBC 3.88 (3.65-5.03) M/mm3 Hgb 13.3 (11.8-15.2) gm/dl Hct 39.5 (35.5-45.6) % MCV 102 H (84-94) fl MCH 34 H (28-32) pg MCHC 34 (32-34) % RDW 18.0 H (13.2-15.2) % Plt Count 241 (140-440) K/mm3 Add Manual Diff Complete Total Counted 100 Seg Neuts % (Manual) 82.0 H (40.0-70.0) % Band Neutrophils % 6.0 % Lymphocytes % (Manual) 6.0 L (13.4-35.0) % Reactive Lymphs % (Man) 0 % Monocytes % (Manual) 5.0 (0.0-7.3) % Eosinophils % (Manual) 0 (0.0-4.3) % Basophils % (Manual) 0 (0.0-1.8) % Metamyelocytes % 1.0 % Myelocytes % 0 % Promyelocytes % 0 % Blast Cells % 0 % Nucleated RBC % Not Reportable Seg Neutrophils # Man 15.7 H (1.8-7.7) K/mm3 Band Neutrophils # 1.1 K/mm3 Lymphocytes # (Manual) 1.1 L (1.2-5.4) K/mm3 Abs React Lymphs (Man) 0.0 K/mm3 Monocytes # (Manual) 1.0 H (0.0-0.8) K/mm3 Eosinophils # (Manual) 0.0 (0.0-0.4) K/mm3 Basophils # (Manual) 0.0 (0.0-0.1) K/mm3 Metamyelocytes # 0.2 K/mm3 Myelocytes # 0.0 K/mm3 Promyelocytes # 0.0 K/mm3 Blast Cells # 0.0 K/mm3 WBC Morphology Not Reportable Hypersegmented Neuts Not Reportable Hyposegmented Neuts Not Reportable Hypogranular Neuts Not Reportable Smudge Cells Not Reportable Toxic Granulation Not Reportable Toxic Vacuolation Not Reportable Dohle Bodies Not Reportable Pelger-Huet Anomaly Not Reportable Anderson Rods Not Reportable Platelet Estimate Consistent w auto Clumped Platelets Not Reportable Plt Clumps, EDTA Not Reportable Large Platelets 1+ Giant Platelets Not Reportable Platelet Satelliting Not Reportable Plt Morphology Comment Not Reportable RBC Morphology Not Reportable Dimorphic RBCs Not Reportable Polychromasia Not Reportable Hypochromasia Not Reportable Poikilocytosis 1+ Anisocytosis Not Reportable Microcytosis Not Reportable Macrocytosis 1+ Spherocytes Not Reportable Pappenheimer Bodies Not Reportable Sickle Cells Not Reportable Target Cells Not Reportable Tear Drop Cells Not Reportable Ovalocytes Not Reportable Helmet Cells Not Reportable Dolan-Eaton Bodies Not Reportable Sandgap Rings Not Reportable Jacobo Cells Not Reportable Bite Cells Not Reportable Crenated Cell Not Reportable Elliptocytes Not Reportable Acanthocytes (Spur) Not Reportable Rouleaux Not Reportable Hemoglobin C Crystals Not Reportable Schistocytes Not Reportable Malaria parasites Not Reportable Darin Bodies Not Reportable Hem Pathologist Commnt No Sodium 149 H (137-145) mmol/L Potassium 3.7 (3.6-5.0) mmol/L Chloride 106.7 (98-107) mmol/L Carbon Dioxide 24 (22-30) mmol/L Anion Gap 22 mmol/L BUN 38 H (9-20) mg/dL Creatinine 0.8 (0.8-1.5) mg/dL Estimated GFR > 60 ml/min BUN/Creatinine Ratio 48 % Glucose 110 H (75-100) mg/dL Calcium 8.5 (8.4-10.2) mg/dL - Medical Decision Making Patient is a 62-year-old male who has a history of frequent falls dementia. Patient was noted to have some mild dehydration with prerenal in relation to the last that he had last week. Patient was given IV hydration patient is a DO NOT RESUSCITATE. 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 This was not seen on previous CT scans of the head were contacting the patient's halfway to alert them of these 2 findings to see if they will take the patient back given his DO NOT RESUSCITATE status if they are uncomfortable with this patient patient will be admitted to the hospitalist service Critical care attestation.: If time is entered above; I have spent that time in minutes in the direct care of this critically ill patient, excluding procedure time. ED Disposition Condition: Stable Referrals: TERESITA CISSE MD [Primary Care Provider] - 3-5 Days
--- NOTE | 2017-08-10 22:33 | Emergency Department Report ---
Blank Doc - Documentation Documentation: I was asked by my colleague to speak with the residential and the patient's PCP to figure out the best disposition for this patient. The patient has a history of dementia, seizure history and is a DO NOT RESUSCITATE order. Due to the patient's recent fall, a CT of the head was done and was found to have a left frontal lobe mass concerning for metastatic disease. I spoke with the patient's primary care physician, Dr. Caal, who is now aware of the patient's CT findings and has asked for the patient to be transferred back to the residential where Dr. Caal will follow-up with him and make decisions on how to proceed.
[2017-08-11 01:09] VITALS: BP 116/62
[2017-08-11] MEDS ORDERED: NORCO 5/325 PO ONE (02:09)
[2017-08-11] MEDS ORDERED: NORCO 5/325 ONE (02:10)
== END 2017-08-11 02:53 | disposition other institution (70) ==
LOC: ED 12:12
DX: S01.81XA Laceration without foreign body of other part of head, initial encounter (principal); G40.909 Epilepsy, unspecified, not intractable, without status epilepticus; F32.9 Major depressive disorder, single episode, unspecified; E78.00 Pure hypercholesterolemia, unspecified; F03.90 Unspecified dementia, unspecified severity, without behavioral disturbance, psychotic disturbance, mood disturbance, and anxiety
CPT/HCPCS: 12013; 36415; 70450; 72125; 80048; 85007; 85025; 90471; 90715; 96360; 99284; J7030; 90714; A6250